=== PATIENT | female | born 1950 | race Caucasian/White ===

== ENCOUNTER → 2016-05-21 | Outpatient (CLI) | payer MEDICARE | LOC: GMAM 14:19 | PROVIDERS: ATTEND Family Medicine | DX: R53.83 Other fatigue (principal) ==

== ENCOUNTER → 2016-10-25 | Outpatient (CLI) | payer MEDICARE | END | disposition home or self-care (01) | LOC: GMA 16:53 | PROVIDERS: ATTEND Nurse Practitioner Family | DX: N39.0 Urinary tract infection, site not specified (principal) ==

== ENCOUNTER → 2016-12-04 | Outpatient (CLI) | payer MEDICARE | END | disposition home or self-care (01) | LOC: GMAM 11:12 | PROVIDERS: ATTEND Family Medicine | DX: N39.0 Urinary tract infection, site not specified (principal); M19.90 Unspecified osteoarthritis, unspecified site ==

== ENCOUNTER → 2016-12-14 | Outpatient (CLI) | payer MEDICARE ==
--- NOTE | 2016-12-15 06:51 | CT ---
EXAM DESCRIPTION: Abdomen/Pelvis w/wo IV Contrast CLINICAL HISTORY: HEMATURIA COMPARISON: CT abdomen and pelvis without contrast 11/01/2014. TECHNIQUE: Spiral-axial scans at 5.0 mm intervals through the abdomen and pelvis before and after nonionic IV contrast. No oral contrast. Coronal and sagittal 2.0 mm reconstructions. No delayed scans. No adverse reactions. DLP 1658.79 mGy-cm. This exam was performed according to our departmental CT dose-optimization program which includes automated exposure control, adjustment of the mA and/or kV according to patient size and/or use of iterative reconstruction technique; to reduce radiation dose to as low as reasonably achievable (ALARA). FINDINGS: Lung bases and pleura: Bilateral silicone breast implants with capsular calcification. Small segment of calcification in the LAD coronary artery. Minimal scarring in the right lower lobe. Liver, stomach, adrenal glands, and spleen: Negative. Pancreas/Gallbladder/Ducts: Gallbladder visualized. Other organs are unremarkable. Kidneys and Ureters: Negative. Mesentery: No free air or free fluid. No fascial thickening or mesenteric stranding. Aorta: Minimal atherosclerotic calcification and contrast enhancement. Small Bowel: No distention or significant air-fluid levels. Terminal Ileum/Cecum: Normal caliber. Appendix is visualized with normal caliber. Normal density of the surrounding mesentery. Colon: No significant distention. Diverticula in the distal descending colon and sigmoid colon. No complications. Pelvic Organs: Complex, mostly cystic structure with Hounsfield density ranging from -3 to +18 HU, in the right adnexa. Dimensions are 5.2 x 4.3 x 4.4 cm and it is medial to the distal right ureter with some mass effect and also abutting the vaginal cuff and loops of small bowel. No definite calcifications. Vaginal cuff is otherwise unremarkable. Separate ovaries are not seen. No fluid in the cul-de-sac. No radiodense stones in the urinary bladder. Spine and Bony Pelvis: Disc space loss and gas formation in the L4-5 disc with posterior disc bulge or herniation. Posterior disc bulge at L2-3 and disc space loss. No bone destruction. Abdominal Wall/Back Soft Tissues: Bilateral fatty inguinal hernias not containing bowel. Small inguinal lymph nodes. Minimal diastases at the umbilicus not containing bowel. IMPRESSION: 1. Complex cystic mass in the right adnexa, most likely multiple cysts in the right ovary. There may be fatty elements in the mass. Consider transpelvic and endovaginal pelvic ultrasound follow-up. 2. Possible herniation L4-5 disc with canal and foraminal narrowing and disc space loss. Correlate for radiculopathy consider follow-up lumbar MRI. 3. Small circular calcification in the LAD coronary artery. Bilateral silicon breast implants with partially calcified capsules. 4. Bilateral moderate fatty inguinal hernias not containing bowel. Electronically signed by: Ashwin Francois MD 12/15/2016 6:49 AM CDT
== END ==
LOC: CT 08:42
PROVIDERS: ATTEND Family Medicine
DX: R31.21 Asymptomatic microscopic hematuria (principal)

== ENCOUNTER → 2016-12-27 | Outpatient (CLI) | payer MEDICARE ==
--- NOTE | 2016-12-28 07:23 | US ---
Procedure: US TRANSVAGINAL Exam Date: 12/28/2016 Ordering Provider: ELLIOT MUNSON MD Clinical Indication: ABDOMINAL OR PELVIC MASS Comparison: 12/14/2016 CT abdomen pelvis and 11/01/2014 CT abdomen pelvis Technique: Endovaginal ultrasound of the pelvis was obtained. Findings: Prior hysterectomy. Prior left oophorectomy. Tubular avascular hypoechoic lesion in the right adnexal region with low-level internal echoes measures roughly 5.3 cm in greatest dimension. CT appearance of this on the 12/14/2016 exam and is not significantly changed from the 11/01/2014 CT. Right ovary is not definitely visualized. No pelvic free fluid. Impression: 1. Right adnexal lesion measures roughly 5.3 cm in greatest dimension and could represent a mucinous or serous cystadenoma or possibly a paratubal cyst. Stable CT appearance dating back to 2014 suggests a benign lesion. This can be further evaluated with contrast-enhanced MRI of the pelvis if clinically indicated. Electronically signed by: Damir Miller MD 12/28/2016 7:22 AM CDT
== END | disposition home or self-care (01) ==
LOC: US 14:36
PROVIDERS: ATTEND Family Medicine
DX: N83.8 Other noninflammatory disorders of ovary, fallopian tube and broad ligament (principal)

== ENCOUNTER → 2017-07-09 | Outpatient (CLI) | payer MEDICARE | LOC: GMAM 11:54 | PROVIDERS: ATTEND Family Medicine | DX: M10.00 Idiopathic gout, unspecified site (principal) ==

== ENCOUNTER → 2017-11-05 | Outpatient (CLI) | payer MEDICARE ==
--- NOTE | 2017-11-06 08:35 | US ---
EXAM DESCRIPTION: Soft Tissue, extremity CLINICAL HISTORY: 67 years Female, RIGHT SHOULDER MASS. Patient feels lump on the right shoulder for approximately 2 weeks. No history of trauma. COMPARISON: None. FINDINGS: Limited ultrasound evaluation of the right upper arm demonstrates a homogeneous area of abnormality measuring 7.4 x 4.1 x 3.1 cm in the right upper arm predominantly isoechoic with scattered linear areas of hypoechogenicity. No evidence of internal vascularity on color Doppler imaging. IMPRESSION: 1. Limited ultrasound evaluation of the right upper arm demonstrates the homogeneous 7.4 x 4.1 x 3.1 cm area of abnormality in the right upper arm, where the patient feels the lump is of indeterminate etiology. Further evaluation with MRI is recommended. Electronically signed by: Len Guzman MD 11/06/2017 8:34 AM CDT
== END ==
LOC: US 15:24
PROVIDERS: ATTEND Family Medicine
DX: R22.31 Localized swelling, mass and lump, right upper limb (principal)

== ENCOUNTER → 2017-11-06 | Outpatient (CLI) | payer MEDICARE | LOC: GMAM 17:24 | PROVIDERS: ATTEND Family Medicine | DX: R30.0 Dysuria (principal) ==

== ENCOUNTER → 2017-11-08 | Outpatient (CLI) | payer MEDICARE ==
--- NOTE | 2017-11-08 13:38 | MRI ---
EXAM DESCRIPTION: Upper Extremity Joint,Right CLINICAL HISTORY: 67 years Female, SWELLING,MASS,RIGHT UPPER EXTREMITY COMPARISON: Ultrasound dated 11/05/2017. TECHNIQUE: Multiplanar multiecho imaging of the right shoulder was performed without gadolinium administration. FINDINGS: Acromion: Type I acromion with lateral downsloping. Acromioclavicular joint: Moderate degenerative changes are identified with impingement on the rotator cuff. Rotator cuff: The subscapularis is intact. Interstitial fraying is noted in the supraspinatus. There is mild articular surface fraying of the infraspinatus. No definite tendon tear or retraction. The teres minor appears normal. Biceps: Mild tenosynovitis of the extra-articular biceps tendon is noted. Labrum: Grossly normal on this nonarthrographic examination. Glenohumeral joint: Mild degenerative changes are identified. Capsule: Normal Bone marrow: Intracortical cysts are identified in the superior humeral head. Joint effusion: Trace joint effusion is noted. Additional findings: There is a 6.4 x 4.9 x 4.4 cm T1 hyperintense lesion with loss of signal on fat saturated images in the deltoid muscle belly, consistent with a lipoma. No thick septations or mural nodules are identified. IMPRESSION: 1. Previously identified mass corresponds to a 6.9 x 4.9 x 4.4 cm lipoma in the deltoid muscle belly. 2. Mild interstitial fraying of the supraspinatus and articular surface fraying of the infraspinatus. 3. Mild tenosynovitis of the extra-articular biceps tendon. 4. Moderate acromioclavicular joint osteoarthritis. Electronically signed by: Katarzyna Singh MD 11/08/2017 1:37 PM CDT
== END ==
LOC: MRI 07:00
PROVIDERS: ATTEND Family Medicine
DX: R22.31 Localized swelling, mass and lump, right upper limb (principal); M19.011 Primary osteoarthritis, right shoulder

== ENCOUNTER → 2018-04-30 | Outpatient (CLI) | payer MEDICARE | LOC: GMAM 10:45 | PROVIDERS: ATTEND Family Medicine | DX: M10.00 Idiopathic gout, unspecified site (principal) ==

== ENCOUNTER → 2018-05-01 | Outpatient (CLI) | payer MEDICARE ==
--- NOTE | 2018-05-01 13:50 | MAM ---
EXAM DESCRIPTION: 3D Diagnostic, Bilateral: Digital Mammography CLINICAL HISTORY: 68 yearsFemaleBREAST LUMP lumps in the upper outer quadrant of the left breast and axilla. Tenderness. No personal or family history of breast cancer. No childbirth. Hysterectomy 18 years ago. Currently on HRT. Bilateral breast augmentation. Lifetime risk of developing breast cancer (Tyrer-Cuzick model) percentage is 6.2. COMPARISON: 2-D digital mammography screening 06/24/2012.. TECHNIQUE: Bilateral CC LM MLO projection full-field images, digital mammographic tomosynthesis technique. CAD not utilized. FINDINGS: The breast parenchymal density pattern is: Heterogeneously dense breast tissue, which may obscure small masses. No skin thickening or nipple retraction bilateral solitary microcalcifications. Circumscribed mass densities in the middle third of the left breast, not as well seen on the prior study. In the 11:00 position, posterior third of the right breast, and middle third of the posterior nipple line, possible nodules. Bilateral saline implants are retroglandular a partially calcified capsules. Implant borders are intact where seen. Bilateral axillary lymph nodes. Ultrasound: Scanning of the left axilla. Elongated hypoechoic circumscribed solid masses with echogenic centers measuring 2.1 x 0.5 cm. Minimal vascularity in the echogenic center, consistent with a lymph node. No distinct cyst, parenchymal edema, or large calcification. Scanning of the upper-outer quadrant of the left breast. Mixture of fibroglandular and fatty echotexture. At the 3:00 position is a anechoic cyst with circumscribed margins, wider than tall and posterior enhancement features. Nonvascular. Dimensions are 8.3 x 8.1 x 6.3 mm. Scanning of the right axilla. Solid mass consistent with a lymph node and similar appearance to the lymph node in the left axilla. Central vascularity in the hilum. Dimensions are 1.3 x 1.2 x 0.4 cm. No cyst, large calcifications, or parenchymal edema. Scanning right breast 11:00 position 4 cm from the nipple. Anechoic cluster consistent with cysts wider than tall, circumscribed margins, septations, and posterior enhancement features. Dimensions 1.1 x 0.3 x 0.5 mm. No calcification, solid mass, or abnormal vascularity. IMPRESSION: Benign exam. BIRAD CATEGORY: 2 BENIGN FINDINGS. RECOMMENDATIONS: FOLLOW UP: Routine digital bilateral mammographic screening, one year interval from April 2018. Written communication explaining the IMPRESSION and follow-up, will be mailed to the patient and referring health care provider. According to the [employer], yearly mammograms are recommended starting at age 40 and continuing as long as a woman is in good health. Any breast change noted on a breast self-exam should be reported promptly to the patient's healthcare provider. Breast MRI is recommended for women with an approximately 20-25% or greater lifetime risk of breast cancer, including women with a strong family history of breast or ovarian cancer and women who have been treated for Hodgkin's disease. A negative mammographic report should not delay tissue diagnosis in patients with significant clinical history or physical findings. Extremely dense breast tissue limits the sensitivity of digital mammography. Electronically signed by: Ashwin Francois MD 05/01/2018 1:49 PM [facility]
--- NOTE | 2018-05-01 17:21 | US ---
EXAM DESCRIPTION: Breast,Left: Ultrasound CLINICAL HISTORY: 68 yearsFemaleBREAST TENDERNESS COMPARISON: Digital diagnostic tomosynthesis bilateral breasts on the same visit. Other TECHNIQUE: Transcutaneous scanning of the bilateral breasts utilizing pendleton-scale and Doppler modes. Scanning performed by the fur finisher tailor ; observation by Dr. Francois. FINDINGS: Scanning of the left axilla. Elongated hypoechoic circumscribed solid masses with echogenic centers measuring 2.1 x 0.5 cm. Minimal vascularity in the echogenic center, consistent with a lymph node. No distinct cyst, parenchymal edema, or large calcification. Scanning of the upper-outer quadrant of the left breast. Mixture of fibroglandular and fatty echotexture. At the 3:00 position is a anechoic cyst with circumscribed margins, wider than tall and posterior enhancement features. Nonvascular. Dimensions are 8.3 x 8.1 x 6.3 mm. Scanning of the right axilla. Solid mass consistent with a lymph node and similar appearance to the lymph node in the left axilla. Central vascularity in the hilum. Dimensions are 1.3 x 1.2 x 0.4 cm. No cyst, large calcifications, or parenchymal edema. Scanning right breast 11:00 position 4 cm from the nipple. Anechoic cluster consistent with cysts wider than tall, circumscribed margins, septations, and posterior enhancement features. Dimensions 1.1 x 0.3 x 0.5 mm. No calcification, solid mass, or abnormal vascularity. IMPRESSION: 1. Bi-Rads Category 2: Benign. 2. Please refer to bilateral breast digital diagnostic tomosynthesis examination and report on the same visit. The FINDINGS and the FOLLOW-UP plan were reviewed in person with the patient after the examination. Written communication explaining the IMPRESSION and FOLLOW-UP will be mailed to the patient and referring care provider. Electronically signed by: Ashwin Francois MD 05/01/2018 5:19 PM [employer]
== END ==
LOC: US 10:51
PROVIDERS: ATTEND Family Medicine
DX: N64.9 Disorder of breast, unspecified (principal)
CPT/HCPCS: 76641; 77066; G0279

== ENCOUNTER 2018-10-27 16:41 | Observation (INO) | payer MEDICARE ==
--- NOTE | 2018-10-27 17:15 | HP ---
SUPERVISING PHYSICIAN: Luis Armando Thayer M.D. CHIEF COMPLAINT: Chest pain. HISTORY OF PRESENT ILLNESS: This is a 68 year-old female with no history of coronary artery disease who went to her primary care provider's office today for substernal chest pain. Apparently she has been having some dizziness as of recently in the past week or so. She states that the room is not spinning, sort of light-headed but kind of like she is leaning to the side. She she has never really experienced that sensation before. She woke up this morning and she had some pain right in the middle of her chest which did not radiate to her back, to her arm or her jaw. She had no diaphoresis and no shortness of breath with this. However, she went to see her primary care provider today after her checked her blood pressure and it was elevated for her. She states that it was in the 150s/90s. Normally she is in the 120s/80s on no blood pressure medications. In the doctor's office she had a set of cardiac enzymes which were negative and an EKG which did not show any acute ST changes. She was referred for direct admission for chest pain rule out. At time of examination the patient is alert and oriented with no distress. PAST MEDICAL HISTORY: 1. Gout. 2. Osteoarthritis. 3. Lower extremity edema. PAST SURGICAL HISTORY: 1. Hysterectomy. 2. Tonsillectomy. 3. Breast augmentation. 4. Cataract removal bilaterally. 5. Right total knee arthroplasty. CURRENT MEDICATIONS: 1. Allopurinol 300 mg daily. 2. Aspirin 81 mg daily. 3. Estradiol 0.025 mg transdermally daily. 4. Hydrochlorothiazide 12.5 mg p.o. daily taken for lower extremity swelling. ALLERGIES: PENICILLIN. FAMILY HISTORY: Father who at age 88 of MRSA infection. Mother who at age 52 of coronary artery disease. SOCIAL HISTORY: No drinking, no smoking, no illicit drugs. REVIEW OF SYSTEMS: CONSTITUTIONAL: No fever or chills. No recent weight loss or weight gain. HEENT: No headaches, vision changes, ear pain, nasal congestion. No throat pain. RESPIRATORY: No cough, hemoptysis or pleuritic chest pain. CARDIAC: Positive for chest pain. No palpitations. No peripheral edema. GASTROINTESTINAL: No nausea, vomiting, diarrhea, constipation or abdominal pain. GENITOURINARY: No dysuria, frequency or flank pain. NEUROLOGIC: Positive for dizziness as described above. No seizures, syncope or paresthesias. ENDOCRINE: No polydipsia, polyuria or polyphagia. No heat or cold intolerance. MUSCULOSKELETAL: No joint pain, joint swelling or muscle cramps. SKIN: No rashes, lesions or wounds. PHYSICAL EXAMINATION: VITAL SIGNS: Blood pressure 132/82, heart rate 55, respiratory rate 16, temperature 97.2, oxygen saturation 96%. GENERAL: Ms. Hall is a 68 year-old female in no acute distress currently. CHEST: Lungs are clear to auscultation bilaterally. CARDIOVASCULAR: Regular rate and rhythm. Normal S1 and S2. ABDOMEN: Soft, positive bowel sounds. GENITOURINARY: Exam was deferred. EXTREMITIES: Lower extremities with no pitting edema but she does have some swelling. NEUROLOGIC: The patient is alert and oriented. LABORATORY: Normal cardiac enzymes noted in the clinic. EKG with no acute ST changes noted. ASSESSMENT: 1. Chest pain, rule out acute coronary syndrome. 2. Hypertension without a history of hypertension. 3. History of gout with no acute flair. 4. Obesity. PLAN: At this time we will complete the cardiac rule out with every 6 hour cardiac enzymes as well as EKGs. We will check CBC, chemistries and lipid panel as well. In the event that there is a change in status, we can transfer to a higher level of care for a cardiology consultation. Otherwise if everything remains negative she will be discharged to followup with cardiology as an outpatient. #[id number] [facility]
[2018-10-27] MEDS ORDERED: ASPIRIN (CHEWABLE) 81 MG TAB PO ONE (18:37)
[2018-10-27] MEDS ORDERED: SODIUM CHLORIDE 0.9% (FLUSH) 10 ML SYG IV PRN (18:37)
[2018-10-27] MEDS ORDERED: ACETAMINOPHEN 325 MG TAB PO PRN (18:37)
[2018-10-27] MEDS ORDERED: MORPHINE SULFATE INJ 10 MG/ML VIAL IV PRN (18:37)
[2018-10-27] MEDS ORDERED: NITROGLYCERIN 0.4 MG 25 EA TAB SL PRN (18:37)
[2018-10-27] MEDS ORDERED: IV SET AND CAP CHANGE INJ INJ SCH (19:00)
[2018-10-27] MEDS: SODIUM CHLORIDE 0.9% (FLUSH) 10 ML SYG IV SCH (21:31)
[2018-10-28 05:12] VITALS: BP 130/76; TEMP 97.9
[2018-10-28] MEDS ORDERED: OMEPRAZOLE CAP 20 MG CAP PO SCH (06:30)
[2018-10-28] MEDS: SODIUM CHLORIDE 0.9% (FLUSH) 10 ML SYG IV SCH (08:17)
[2018-10-28] MEDS ORDERED: ASPIRIN TABLET 325 MG TAB PO SCH (09:00)
[2018-10-28] MEDS ORDERED: ALLOPURINOL 300 MG TAB PO SCH (09:00)
[2018-10-28] MEDS ORDERED: hydroCHLOROthiazide 12.5 MG CAP PO SCH (09:00)
[2018-10-28] MEDS ORDERED: ESTRADIOL 0.025 MG TD SCH (09:00)
--- NOTE | 2018-10-28 11:16 | DS ---
SUPERVISING PHYSICIAN: Luis Armando Thayer MD ADMISSION DIAGNOSIS: 1. Chest pain, rule out acute coronary syndrome. 2. Hypertension without a history of hypertension. 3. History of gout with no acute flare. 4. Obesity. DISCHARGE DIAGNOSIS: 1. Chest pain, rule out acute coronary syndrome. 2. Hypertension without a history of hypertension. 3. History of gout with no acute flare. 4. Obesity. HOSPITAL COURSE: This is a 68 year-old female with no history of coronary artery disease who went to her primary care provider's office today for substernal chest pain. Apparently she has been having some dizziness as of recently in the past week or so. She states that the room is not spinning, sort of light-headed but kind of like she is leaning to the side. She she has never really experienced that sensation before. She woke up this morning and she had some pain right in the middle of her chest which did not radiate to her back, to her arm or her jaw. She had no diaphoresis and no shortness of breath with this. However, she went to see her primary care provider today after her checked her blood pressure and it was elevated for her. She states that it was in the 150s/90s. Normally she is in the 120s/80s on no blood pressure medications. In the doctor's office she had a set of cardiac enzymes which were negative and an EKG which did not show any acute ST changes. She was referred for direct admission for chest pain rule out. At time of examination the patient is alert and oriented with no distress. The serial cardiac enzymes as well as EKGs remained negative. The patient had no further chest pain throughout her stay here. Her blood pressure was acceptable. She will be discharged in stable condition to followup with Dr. Thayer. I suggest that potentially she needs to followup with Dr. Beltrán as she did have a cardiac CT in the past which was normal, but she need an actual stress test. [id number]
[2018-10-28 12:43] VITALS: O2SAT 94
== END 2018-10-28 09:20 | disposition home or self-care (01) ==
LOC: GMAM 16:41 → INTOOBSV 17:00 → MS 17:00
PROVIDERS: ADMIT Nurse Practitioner; ATTEND Nurse Practitioner
DX: R07.2 Precordial pain (principal); I10 Essential (primary) hypertension; M10.9 Gout, unspecified; E66.9 Obesity, unspecified; M19.90 Unspecified osteoarthritis, unspecified site; Z68.37 Body mass index [BMI] 37.0-37.9, adult; Z79.82 Long term (current) use of aspirin; Z79.899 Other long term (current) drug therapy; Z88.0 Allergy status to penicillin; Z96.651 Presence of right artificial knee joint; Z82.49 Family history of ischemic heart disease and other diseases of the circulatory system
CPT/HCPCS: 82553 ×3; 80053; 80061; 36415; 85025; 82550 ×3; 84484 ×3; 93005 ×2; G0378

== ENCOUNTER → 2018-11-21 | Outpatient (CLI) | payer MEDICARE | LOC: GMAM 12:21 | PROVIDERS: ATTEND Family Medicine | DX: M10.00 Idiopathic gout, unspecified site (principal) ==

== ENCOUNTER → 2018-12-05 | Outpatient (CLI) | payer MEDICARE ==
--- NOTE | 2018-12-05 11:41 | US ---
EXAM DESCRIPTION: Thyroid CLINICAL HISTORY: 68 years, Female, ABNORMAL RESULTS OF THYROID STUDIES COMPARISON: None. FINDINGS: Thyroid ultrasound demonstrates mildly bulky and heterogenous echotexture of the bilateral gland. The isthmus measures 0.3 cm in thickness. The right lobe measures 5.2 x 2.2 x 1.9 cm. Within the right thyroid lobe a 2.3 x 1.3 x 1.8 cm hypoechoic nodule is present with internal calcifications (TR 4). A 0.9 x 0.9 cm hypoechoic nodule is present anteriorly. The left lobe measures 5.4 x 2 x 1.8 cm. Within the left thyroid lobe a 2.2 x 1.3 x 1.9 cm isoechoic nodule (TR 3) is present superiorly, 1.8 x 1.4 cm hypoechoic nodule is present inferiorly No suspicious adenopathy. IMPRESSION: 1. Multinodular thyroid gland (two nodules on the right and two on the left). 2. Right 2.3 cm hypoechoic thyroid nodule (TR 4) with internal calcification meets criteria for thyroid fine-needle aspiration. 3. Other thyroid nodules can be follow-up with thyroid ultrasound in 12 months. ACR TI-RADS 2017 Recommendations: TR1: No FNA or follow up TR2: No FNA or follow up TR3: FNA if >/= 2.5 cm, follow up if 1.5 - 2.4 cm in 1, 3, and 5 years TR4: FNA if >/= 1.5 cm, follow up if 1.0 - 1.4 cm in 1, 2, 3, and 5 years TR5: FNA if >/= 1.0 cm, follow up if 0.5 - 0.9 cm every year for 5 years *ACR TI-RADS recommends that no more than two nodules with the highest ACR TI-RADS total point should be biopsied and no more than four nodules should be followed. Electronically signed by: Favio Sam DO 12/05/2018 11:39 AM CDT
== END ==
LOC: US 10:00
PROVIDERS: ATTEND Family Medicine
DX: E04.2 Nontoxic multinodular goiter (principal)

== ENCOUNTER → 2018-12-23 | Outpatient (CLI) | payer MEDICARE | LOC: US 10:00 | PROVIDERS: ATTEND Family Medicine | DX: E04.1 Nontoxic single thyroid nodule (principal) ==

== ENCOUNTER → 2019-04-16 | Outpatient (CLI) | payer MEDICARE ==
--- NOTE | 2019-04-16 14:52 | RAD ---
EXAM DESCRIPTION: Calcaneous,Right CLINICAL HISTORY: 69 years Female, PAIN IN RIGHT FOOT COMPARISON: None. FINDINGS: Two views of the right calcaneus show no acute fracture or malalignment. Subtalar joint is unremarkable. Moderate size calcaneal enthesophytes at the plantar fascia and Achilles tendon insertions. Mild degenerative calcification along the dorsal aspect of the midfoot. IMPRESSION: Degenerative changes and calcaneal spurring. Electronically signed by: Ankit Tilley MD 04/16/2019 2:50 PM [facility]
--- NOTE | 2019-04-16 14:53 | RAD ---
EXAM DESCRIPTION: Foot,Right 3 Views CLINICAL HISTORY: 69 years Female, PAIN IN RIGHT FOOT COMPARISON: None. FINDINGS: Three views of the right foot show no acute fracture or malalignment. Calcaneal enthesophyte formation. No radiopaque foreign body or soft tissue gas. IMPRESSION: Calcaneal spurring without acute right foot abnormality. Electronically signed by: Ankit Tilley MD 04/16/2019 2:51 PM [facility]
== END ==
LOC: RAD 09:00
PROVIDERS: ATTEND Orthopaedic Surgery
DX: M77.31 Calcaneal spur, right foot (principal); M19.071 Primary osteoarthritis, right ankle and foot

== ENCOUNTER → 2019-05-27 | Outpatient (CLI) | payer MEDICARE | LOC: GMAM 11:46 | PROVIDERS: ATTEND Family Medicine | DX: R79.82 Elevated C-reactive protein (CRP) (principal); E04.1 Nontoxic single thyroid nodule; M10.00 Idiopathic gout, unspecified site; R03.0 Elevated blood-pressure reading, without diagnosis of hypertension; E78.2 Mixed hyperlipidemia ==

== ENCOUNTER → 2020-02-15 | Outpatient (CLI) | payer MEDICARE ==
--- NOTE | 2020-02-15 19:14 | RAD ---
EXAM DESCRIPTION: Hip,Left 2 Views (accession [id number]), Pelvis (accession [id number]) CLINICAL HISTORY: 69 years Female, HIP PAIN LEFT COMPARISON: None. Findings: Three views/radiographs Location: Left hip/pelvis No acute fracture or dislocation. Mild bilateral hip joint space narrowing. Soft tissues are unremarkable. Degenerative changes in the spine. IMPRESSION: No evidence of acute process in the left hip/pelvis. Electronically signed by: Darnell Sheppard MD 02/15/2020 7:12 PM CDT
--- NOTE | 2020-02-15 19:14 | RAD ---
EXAM DESCRIPTION: Hip,Left 2 Views (accession [id number]), Pelvis (accession [id number]) CLINICAL HISTORY: 69 years Female, HIP PAIN LEFT COMPARISON: None. Findings: Three views/radiographs Location: Left hip/pelvis No acute fracture or dislocation. Mild bilateral hip joint space narrowing. Soft tissues are unremarkable. Degenerative changes in the spine. IMPRESSION: No evidence of acute process in the left hip/pelvis. Electronically signed by: Darnell Sheppard MD 02/15/2020 7:12 PM CDT
== END ==
LOC: RAD 09:51
PROVIDERS: ATTEND Orthopaedic Surgery
DX: M25.552 Pain in left hip (principal)

== ENCOUNTER → 2020-06-03 | Outpatient (CLI) | payer MEDICARE | LOC: GMAM 11:32 | PROVIDERS: ATTEND Family Medicine | DX: R79.82 Elevated C-reactive protein (CRP) (principal); E04.1 Nontoxic single thyroid nodule; R03.0 Elevated blood-pressure reading, without diagnosis of hypertension; E78.2 Mixed hyperlipidemia; M10.00 Idiopathic gout, unspecified site ==